=== PATIENT | female | born 1995 | race African-American/Black ===

== ENCOUNTER → 2020-04-03 15:42 | Outpatient (CLI) | payer OTHER, SELFPAY ==
[2020-04-03 17:00] LABS: Add Manual Diff / Slide Review NO; Basophils Absolute Auto 0 /uL (0-100); Basophils Percent Auto 1.2 % (0-2); Eosinophils Absolute Auto 100 /uL (0-450); Eosinophils Percent Auto 4.4 % (2-4); Hematocrit 40.5 % (36-46); Hemoglobin 13.5 g/dL (12.0-16.0); Lymphocytes Absolute Auto 1300 /uL (1100-4500); Lymphocytes Percent Auto 41.7 % (25-40); Mean Corpuscular HGB Conc 33.3 % (30-36); Mean Corpuscular Hemoglobin 27.6 PG (26-34); Monocytes Absolute Auto 300 /uL (0-900); Neutrophils Absolute Auto 1300 /uL (1500-7000); Neutrophils Percent Auto 41.7 % (50-75); Platelet Count 202 X10^3/uL (150-400); Red Blood Cell Count 4.88 X10^6/uL (4.0-5.2); Red Cell Distribution Width 25.3 % (11.6-14.8); White Blood Cell Count 3.1 X10^3/uL (4.5-11.0)
[2020-04-03 17:15] LABS: HEMOLYSIS < 15 (0-50); Iron 49 ug/dL (37-170)
[2020-04-03 17:24] LABS: Anisocytosis 3+; Platelet Estimate Adequate on smear; RBC Morphology See
[2020-04-03 17:25] LABS: Poikilocytosis 2+
[2020-04-03 17:26] LABS: Percent Iron Saturation 13 % (15-50); Total Iron Binding Capacity 371 ug/dL (265-497); Transferrin 319 mg/dL (206-381)
[2020-04-03 17:39] LABS: Ferritin 14 ng/mL (6-137)
== END ==
PROVIDERS: Referring Provider Internal Medicine Hematology & Oncology; Visit Provider Internal Medicine Hematology & Oncology
DX: D50.0 Iron deficiency anemia secondary to blood loss (chronic) (principal)
CPT/HCPCS: 36415; 82728; 83540; 83550; 85025

== ENCOUNTER → 2020-07-12 15:00 | Oncology outpatient (ONC) | payer OTHER, SELFPAY ==
[2020-01-26 14:50] VITALS: BP 134/73; PULSE 78; RESP 16; TEMP 36.9; O2SAT 100
--- NOTE | 2020-01-26 15:36 | P.CONONC_ITS ---
History of Present Illness - Data of Consult Primary Care Provider: Nia Olmstead MD - Consult Narrative Narrative: Shonna Reid is a 24 year old premenopausal woman, referred for treatment of iron deficiency anemia. She has menorrhagia. She reports heavy periods lasting 7 days, but does not have spotting in between periods. Also reports severe pelvic cramping for a week prior to starting periods. She was previously given norethindrone which did not seem to help. She denies melanotic stools or rectal bleeding. The only CBC available to us is from 04/26/2019, which showed hemoglobin 9.8, hematocrit 31.8%, MCV 68, RDW 19.5%, ferritin 7.9, TSH 1.2. She was recently prescribed oral iron supplement which she tried for few days, but could not handle due to stomach discomfort, nausea and constipation. She reports feeling excessively tired. Last week, she almost had a syncopal episode. Past medical history positive for polycystic ovary syndrome, acne, menorrhagia, dysmenorrhea, acanthosis nigricans. She never had surgery. She is lifetime nonsmoker. She drinks alcohol occasionally. 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 CC: Jan Armijo MD Home Medications and Allergies Home Medications Medication Instructions Recorded Confirmed Type ferrous sulfate 325 mg PO Q3-4D 01/26/20 01/26/20 History multivitamin 1 cap DAILY 01/26/20 01/26/20 History Allergies Allergy/AdvReac Type Severity Reaction Status Date / Time No Known Drug Allergies Allergy Verified 01/26/20 14:50 Review of Systems - Patient Self-Reported Symptoms SR Constitution: Chills, Fatigue/Malaise, Night Sweats SR ears, nose, mouth, throat issues: Bleeding gums SR Cardiovascular issues: Dizzy/lightheaded SR Skin issues: Dry skin, Skin rash or itching, Skin color changes, Hair loss or scalp prob SR Gastrointestinal issues: Poor or no appetite SR Neuro issues: Lightheaded/dizzy, Difficulty balancing Exam Vital signs: Vital Signs Temp Pulse Resp BP Pulse Ox 01/26/20 14:50 98.4 F 78 16 134/73 100 Intake and Output 01/25/20 01/26/20 01/26/20 23:59 07:59 15:59 Other: Weight 66.8 kg Patient Weight 01/26/20 23:59 Weight 66.8 kg Assessment and Plan (1) Iron deficiency anemia due to chronic blood loss Current visit: Yes Status: Chronic 24-year-old woman with severe iron deficiency anemia, secondary to menstrual blood loss. She did not tolerate oral iron well. Recommendations: Baseline labs today including CBC, CMP, ferritin, iron profile, retic count, B12 I recommend IV iron supplementation. We have scheduled iron sucrose 300 mg weekly x4 for total 1200 mg. Follow-up in 6 weeks with repeat labs on day before.
[2020-01-26 16:27] LABS: Hematocrit 27.5 % (36-46); Hemoglobin 8.5 g/dL (12.0-16.0); Mean Corpuscular HGB Conc 30.9 % (30-36); Mean Corpuscular Volume 64.6 fL (80-100); Platelet Count 250 X10^3/uL (150-400); Red Blood Cell Count 4.26 X10^6/uL (4.0-5.2); Red Cell Distribution Width 19.3 % (11.6-14.8); White Blood Cell Count 3.3 X10^3/uL (4.5-11.0)
[2020-01-26 16:28] LABS: Add Manual Diff / Slide Review YES; Reticulocyte Count, Percent 1.1 % (1.06-2.63)
[2020-01-26 16:43] LABS: Alanine Aminotransferase 16 IU/L (<35); Albumin 4.6 g/dL (3.5-5.0); Albumin Globulin Ratio 1.2 (1.0-2.8); Alkaline Phosphatase 39 U/L (38-126); Aspartate Aminotransferase 36 IU/L (14-36); BUN Creatinine Ratio 15.6 (6-22); Bilirubin Total 0.7 mg/dL (0.2-1.3); Blood Urea Nitrogen 14 mg/dL (7-17); Calcium 9.4 mg/dL (8.4-10.2); Carbon Dioxide 24 mmol/L (22-32); Chloride 104 mmol/L (98-107); Estimated Glomerular Filt Rate > 60.0 mL/min (>60); Globulin 3.8 g/dL (1.7-4.1); Glucose 99 mg/dL (70-100); HEMOLYSIS < 15 (0-50); Potassium 4.1 mmol/L (3.4-5.1); Sodium 138 mmol/L (137-145); Total Protein 8.4 g/dL (6.3-8.2)
[2020-01-26 16:50] LABS: Neutrophils Absolute Manual 1056 /uL (3000-5900); Total Cells Counted 100
[2020-01-26 16:51] LABS: Anisocytosis 1+; HEMOLYSIS < 15 (0-50); Iron 29 ug/dL (37-170); Microcytosis 1+; Ovalocytes 1+; Poikilocytosis 1+
[2020-01-26 17:02] LABS: Percent Iron Saturation 6 % (15-50); Total Iron Binding Capacity 488 ug/dL (265-497); Transferrin 397 mg/dL (206-381)
[2020-01-26 17:19] LABS: Ferritin 5 ng/mL (6-137)
[2020-01-26 17:49] LABS: Folate > 20.0 ng/mL (2.76-20.0); Vitamin B12 653 pg/mL (239-931)
--- NOTE | 2020-01-27 11:19 | ONC.SCHED ---
Jaime Garrido at [facility] no PA required for Iron as long as there is an active auth for visits. Ref#[id number].
[2020-01-29] MEDS: IRON SUCROSE 300 MG in SODIUM CHLORIDE 0.9% 100 ML 150 ML IV (12:06)
[2020-01-29] MEDS: SODIUM CHLORIDE 0.9% 250 ML 21 ML IV (12:10)
[2020-01-29 12:27] VITALS: BP 122/70; PULSE 66; RESP 18; TEMP 36.7; O2SAT 99
--- NOTE | 2020-01-29 13:24 | PC.NURSE ---
Day shift: Pt tolerated the ferrous/iron infusion well. She left the unit at 1325. No pain and no nausea. VS WNL. RA 99%. She stated she will be returing in 1 week. She is a very pleasant person.
[2020-02-05] MEDS: IRON SUCROSE 300 MG in SODIUM CHLORIDE 0.9% 100 ML 230 ML IV (11:35)
[2020-02-05] MEDS: SODIUM CHLORIDE 0.9% 250 ML 21 ML IV (11:42)
--- NOTE | 2020-02-05 11:50 | PC.NURSE ---
Pt arrived to the AC floor at 1100 and made comfortable in rm 201.
[2020-02-05 13:42] VITALS: BP 113/75; PULSE 69; RESP 16; TEMP 36.6; O2SAT 100
[2020-02-12] MEDS: IRON SUCROSE 300 MG in SODIUM CHLORIDE 0.9% 100 ML 230 ML IV (11:47)
[2020-02-12] MEDS: SODIUM CHLORIDE 0.9% 250 ML 21 ML IV (11:48)
--- NOTE | 2020-02-12 12:21 | PC.NURSE ---
Pt arrived via home settled to room. IV started per Leora ENGLE RN. tried twice before and vein didn't take either attempt. Pt given warm blanket. Pt offers no c/o , voices no other concerns.
[2020-02-12 12:36] VITALS: BP 116/70; PULSE 75; RESP 20; TEMP 37.1; O2SAT 100
[2020-02-21 13:10] VITALS: BP 126/91; PULSE 76; RESP 16; TEMP 36.8; O2SAT 100
[2020-02-21] MEDS: IRON SUCROSE 300 MG in SODIUM CHLORIDE 0.9% 100 ML 230 ML IV (14:00)
--- NOTE | 2020-03-02 15:58 | ONC.SCHED ---
Spoke with patient to move her appt as had ordered labs. Gave patient instructions to have labs completed at one week prior to 04/10/20 appt. Pt voiced understanding
--- NOTE | 2020-06-12 11:15 | P.PNONC_ITS ---
PN -Subjective Interval history: Britany Reid is a 25-year-old female presents here today for follow-up of iron deficiency anemia. Patient was previously seen by Dr. Armijo. Lab results indicated microcytic hypochromic chromic anemia consistent with iron deficiency. Initially, she tried oral iron pills which she cannot tolerate because of stomach discomfort, nausea and constipation. She had Venofer infusion 300 mg x 4 in January 2020. Patient said that afterwards she has felt better until recently. She said she again is experiencing low energy with dizzy spell. Patient said that her body just feels super weak. She does not have the energy to get out of the bed and to go to the computer. She also craves for ice. Her menstrual periods remain heavy. She denies any blood in the stool and denies any abdominal pain. She denies diarrhea or constipation. She denies any nausea or vomiting. Past medical history positive for polycystic ovary syndrome, acne, menorrhagia, dysmenorrhea, acanthosis nigricans. She never had surgery. She is lifetime nonsmoker. She drinks alcohol occasionally. 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 - Patient Self-Reported Symptoms SR Constitution: Chills, Fatigue/Malaise, Night Sweats SR ears, nose, mouth, throat issues: Bleeding gums SR Cardiovascular issues: Dizzy/lightheaded SR Skin issues: Dry skin, Skin rash or itching, Skin color changes, Hair loss or scalp prob SR Gastrointestinal issues: Poor or no appetite SR Neuro issues: Lightheaded/dizzy, Difficulty balancing - Additional ROS All systems PM: reviewed and no additional remarkable complaints except as stated Home Medications and Allergies Home Medications Medication Instructions Recorded Confirmed Type multivitamin 1 cap DAILY 01/26/20 01/26/20 History Allergies Allergy/AdvReac Type Severity Reaction Status Date / Time No Known Drug Allergies Allergy Verified 01/26/20 14:50 Exam Vital signs: 06/13/20 00:06 Last Vital Signs Temp 97.9 F 06/12/20 11:17 Pulse 70 06/12/20 11:17 Resp 16 06/12/20 11:17 BP 124/78 06/12/20 11:17 Pulse Ox 97 06/12/20 11:17 - Constitutional positive no acute distress, positive average body habitus, positive cooperative - Routine HEENT Exam Head: Present: normocephalic, atraumatic Eye: Present: EOMI, PERRL, normal accommodation. Absent: conjunctival icterus - Routine Neck Exam Present: supple. Absent: lymphadenopathy - Routine Chest/Breast/Axilla Exam Axillae: Absent: lymphadenopathy - Routine Respiratory Exam Present: Clear to auscultation bilaterally. Absent: wheezes - Routine Cardiovascular Exam Present: RRR, S1, S2. Absent: murmur, gallop, rubs - Routine Abdominal Exam Present: soft. Absent: tenderness, distended, organomegaly - Routine Extremities Exam Absent: edema - Routine Neurological Exam Present: alert, oriented X3, CN II-XII intact, normal reflexes. Absent: sensory deficit, motor deficit - Routine Psychiatric Exam Present: normal affect Results - Labs Laboratory Last Values WBC 3.3 X10^3/uL (4.5-11.0) L 01/26/20 16:14 RBC 4.26 X10^6/uL (4.0-5.2) 01/26/20 16:14 Hgb 8.5 g/dL (12.0-16.0) L 01/26/20 16:14 Hct 27.5 % (36-46) L 01/26/20 16:14 MCV 64.6 fL (80-100) L 01/26/20 16:14 MCH 20.0 PG (26-34) L 01/26/20 16:14 MCHC 30.9 % (30-36) 01/26/20 16:14 RDW 19.3 % (11.6-14.8) H 01/26/20 16:14 Plt Count 250 X10^3/uL (150-400) 01/26/20 16:14 Neut % (Auto) Not Reportable 01/26/20 16:14 Lymph % (Auto) Not Reportable 01/26/20 16:14 Greene % (Auto) Not Reportable 01/26/20 16:14 Eos % (Auto) Not Reportable 01/26/20 16:14 Baso % (Auto) Not Reportable 01/26/20 16:14 Lymph # (Auto) Not Reportable 01/26/20 16:14 Greene # (Auto) Not Reportable 01/26/20 16:14 Baso # (Auto) Not Reportable 01/26/20 16:14 Total Counted 100 01/26/20 16:14 Seg Neutrophils % 32.0 % (38-70) L 01/26/20 16:14 Lymphocytes % (Manual) 51.0 % (25-45) H 01/26/20 16:14 Atypical Lymphs % 6.0 % (-0) H 01/26/20 16:14 Monocytes % (Manual) 11.0 % (2-11) 01/26/20 16:14 Neutrophils # (Manual) 1056 /uL (2496-0154) L 01/26/20 16:14 RBC Morphology See below 01/26/20 16:14 Poikilocytosis 1+ H 01/26/20 16:14 Anisocytosis 1+ H 01/26/20 16:14 Microcytosis 1+ H 01/26/20 16:14 Ovalocytes 1+ H 01/26/20 16:14 Percent Retic 1.1 % (1.06-2.63) 01/26/20 16:14 Sodium 138 mmol/L (137-145) 01/26/20 16:14 Potassium 4.1 mmol/L (3.4-5.1) 01/26/20 16:14 Chloride 104 mmol/L (98-107) 01/26/20 16:14 Carbon Dioxide 24 mmol/L (22-32) 01/26/20 16:14 BUN 14 mg/dL (7-17) 01/26/20 16:14 Creatinine 0.90 mg/dL (0.52-1.04) 01/26/20 16:14 Estimated GFR > 60.0 mL/min (>60) 01/26/20 16:14 BUN/Creatinine Ratio 15.6 (6-22) 01/26/20 16:14 Glucose 99 mg/dL (70-100) 01/26/20 16:14 Calcium 9.4 mg/dL (8.4-10.2) 01/26/20 16:14 Iron 29 ug/dL (37-170) L 01/26/20 16:14 TIBC 488 ug/dL (265-497) 01/26/20 16:14 % Saturation 6 % (15-50) L 01/26/20 16:14 Transferrin 397 mg/dL (206-381) H 01/26/20 16:14 Ferritin 5 ng/mL (6-137) L 01/26/20 16:14 Total Bilirubin 0.7 mg/dL (0.2-1.3) 01/26/20 16:14 AST 36 IU/L (14-36) 01/26/20 16:14 ALT 16 IU/L (<35) 01/26/20 16:14 Alkaline Phosphatase 39 U/L (38-126) 01/26/20 16:14 Total Protein 8.4 g/dL (6.3-8.2) H 01/26/20 16:14 Albumin 4.6 g/dL (3.5-5.0) 01/26/20 16:14 Globulin 3.8 g/dL (1.7-4.1) 01/26/20 16:14 Albumin/Globulin Ratio 1.2 (1.0-2.8) 01/26/20 16:14 Vitamin B12 653 pg/mL (239-931) 01/26/20 16:14 Folate > 20.0 ng/mL (2.76-20.0) H 01/26/20 16:14 Assessment and Plan (1) Iron deficiency anemia due to chronic blood loss 25-year-old woman with severe iron deficiency anemia, secondary to menstrual blood loss. She did not tolerate oral iron well. Now she presents with recurrent clinical symptoms including fatigue, and pica (craving for ice) Recommendations: Repeat CBC, CMP, ferritin, iron profile today Iron sucrose 300 mg weekly x4 for total 1200 mg. Follow-up in 8 weeks with repeat labs on day before.
[2020-06-12 11:17] VITALS: BP 124/78; PULSE 70; RESP 16; TEMP 36.6; O2SAT 97
[2020-06-20 15:15] VITALS: BP 144/82; PULSE 89; RESP 18; O2SAT 99
[2020-06-20] MEDS: IRON SUCROSE 300 MG in SODIUM CHLORIDE 0.9% 100 ML 230 ML IV (15:23)
[2020-06-27 15:21] VITALS: BP 127/73; PULSE 87; RESP 16; TEMP 36.9; O2SAT 99
[2020-06-27] MEDS: IRON SUCROSE 300 MG in SODIUM CHLORIDE 0.9% 100 ML 230 ML IV (15:29)
[2020-07-08 10:02] VITALS: BP 130/70; PULSE 69; RESP 16; TEMP 36.4; O2SAT 100
[2020-07-08] MEDS: IRON SUCROSE 300 MG in SODIUM CHLORIDE 0.9% 100 ML 230 ML IV (10:09)
--- NOTE | 2020-07-08 11:09 | PC.NURSE ---
PATIENT TOLERATED IV INFUSING WITHOUT COMPLICATIONS.
[2020-07-12 15:11] VITALS: BP 127/72; PULSE 102; RESP 16; TEMP 36.8; O2SAT 95
[2020-07-12] MEDS: IRON SUCROSE 300 MG in SODIUM CHLORIDE 0.9% 100 ML 230 ML IV (15:11)
--- NOTE | 2020-08-15 13:59 | ONC.SCHED ---
Patient no showed last appointment for follow up on 08/14/2020. Called her and left 3 voicemails 08/14 @15:01 08/15 @09:08 and 08/15 @13:58. Each time I advised her to give us call back to reschedule and I have not heard anything back.
== END ==
PROVIDERS: Internal Medicine Hematology & Oncology; Visit Provider Internal Medicine Hematology & Oncology
DX: D50.0 Iron deficiency anemia secondary to blood loss (chronic) (principal); N92.0 Excessive and frequent menstruation with regular cycle
CPT/HCPCS: 36415; 80053; 82607; 82728; 82746; 83540; 83550; 85025; 85045; 96365; 99204; 99214; J1756

== ENCOUNTER 2020-09-01 09:25 | Emergency (ER) | payer OTHER, SELFPAY ==
[2020-09-01 09:30] VITALS: BP 154/79; PULSE 91; RESP 18; TEMP 36.7; O2SAT 99
--- NOTE | 2020-09-01 09:38 | ED_ITS ---
HPI - General Adult General Chief complaint: Urogenital-Female Stated complaint: 'uterus is inflamed' Time Seen by Provider: 09/01/20 09:31 Source: patient Mode of arrival: Ambulatory Limitations: no limitations History of Present Illness HPI narrative: 25-year-old female. Approximately penitentiary through menstrual cycle here for 2 days of lower abdominal pain, problems with urinating, cramping. No nausea vomiting. No change in bowel habits. She has never been in the past. She states she is concerned about STIs. Has never had a STI in the past. No fevers. Has not tried anything for symptoms prior to arrival. No back pain. Related Data Home Medications Medication Instructions Recorded Confirmed multivitamin 1 cap DAILY 01/26/20 01/26/20 Previous Rx's Medication Instructions Recorded nitrofurantoin monohyd/m-cryst 100 mg PO Q12H 5 Days #10 cap 09/01/20 [Macrobid] Allergies Allergy/AdvReac Type Severity Reaction Status Date / Time No Known Drug Allergies Allergy Verified 01/26/20 14:50 Review of Systems Constitutional Constitutional: Denies fever(s) Cardiovascular Cardiovascular: Denies chest pain and Denies dyspnea Respiratory Respiratory: Denies dyspnea Gastrointestinal Gastrointestinal: Denies nausea and Denies vomiting Comments: Lower abdomen pain Genitourinary Genitourinary: Reports dysuria, Reports urinary hesitancy and Reports urinary incontinence Genitourinary: Reports dysuria, Reports urinary incontinence, Reports urinary hesitancy and Denies vaginal discharge Musculoskeletal Musculoskeletal: Denies arthralgias and Denies myalgias Integumentary/Breasts Skin/Breast: Denies rash Neurologic Neurologic: Denies behavioral changes Psychiatric Psychiatric: Denies behavioral changes Hematologic/Lymphatic Hematologic/Lymphatic: Denies easy bleeding and Denies easy bruising Allergic/Immunologic Allergic/Immunologic: Denies urticaria Patient History Medical History Iron deficiency anemia due to chronic blood loss (Inactive) Social History Smoking Status: Never smoker Smoking Status: Never smoker alcohol intake frequency: 0-2 drinks per day Substance Use Type: does not use Exam Initial Vital Signs Initial Vital Signs: Vital Signs Temperature 98.1 F 09/01/20 09:30 Pulse Rate 91 H 09/01/20 09:30 Respiratory Rate 18 09/01/20 09:30 Blood Pressure 154/79 H 09/01/20 09:30 Pulse Oximetry 99 09/01/20 09:30 Const General: cooperative and comfortable Limitations: mental status not altered Resp Effort & Inspection: normal respiratory effort Auscultation: clear to auscultation bilaterally Cardio Rate: regular rate Rhythm: regular rhythm GI Inspection: non-distended Palpation: soft, No firm and tender (Suprapubic and right adnexa) Back/Spine/Pelvis Back: No CVA tenderness Skin Lesions: no lesions Rashes: no rashes Neuro General: patient alert and patient awake Cognition: normal cognition Speech: speech normal Extrem General: normal to inspection and capillary refill normal Psych Appearance: grossly normal and well kempt Scores GCS Dick coma scale eye opening: Spontaneous Dick coma scale verbal response: Orientated [place] coma scale motor response: Obey commands [place] coma scale total score: 15 Course Orders Ordered: ED Orders 09/01/20 09:35 Chlamydia Gonorrhea PCR -URINE Stat Test Urine Stat Urinalysis and Microscopic Stat 09/01/20 10:58 Urine Culture Stat Vital Signs Vital signs: Vital Signs - 8 hr 09/01/20 09:30 Temperature 98.1 F Pulse Rate 91 H Respiratory Rate 18 Blood Pressure 154/79 H Pulse Oximetry 99 Medical Decision Making Lab Data Lab results reviewed: Yes I reviewed the patient's lab results. Labs: Lab Results 09/01/20 09/01/20 09/01/20 Range/Units 09:35 09:35 09:35 Urine Color Yellow Urine Appearance Sl cloudy Urine pH 7.0 (4.5-8.0) Ur Specific [place] 1.015 (1.000-1.035) Urine Protein Negative (Negative) Urine Glucose (UA) 2+ H (Negative) g/dL Urine Ketones Negative (NEGATIVE) Urine Occult Blood 3+ H (Negative) Urine Nitrate Negative (Negative) Urine Bilirubin Negative (NEGATIVE) Urine Urobilinogen 0.2 (0.2) E.U./dL Ur Leukocyte Esterase Trace H (NEGATIVE) Urine RBC 30-100/hpf H (0-5/HPF) Urine WBC 10-30/hpf H (0-5/HPF) Ur Squamous Epith Cells 10-30 /hpf H (0-5/HPF) Urine Bacteria Moderate (10-30) H (None) Ur Culture Indicated? Cult not indicated Urine Test Negative (Negative) Ur Chlamydia DNA (PCR) Not detected N gonorrhoeae DNA (PCR) Not detected Point of Care Testing Test Results Negative Point of care testing: Point of Care Testing Test Results Negative MDM Narrative Medical decision making narrative: Patient does have urinary symptoms to include dysuria and urinary hesitancy and frequency. Her urinalysis does have quite a few epi cells however has other findings concerning for UTI and given her symptoms I will treat her as such. Urine culture was pending at the time of discharge. Patient was informed that if we need to switch antibiotics we would give her a call. Her gonorrhea and chlamydia tests were negative. She was informed of this. She was given return precautions and follow-up instructions. She expressed understanding and agreement. Discharge Plan Departure Patient Disposition: Home Clinical Impression: Urinary tract infection Qualifiers: Urinary tract infection type: acute cystitis Hematuria presence: without hematuria Qualified Code(s): N30.00 - Acute cystitis without hematuria Instructions: DI for Urinary Tract Infection (UTI) Activity Restrictions/Additional Instructions: A urine culture was pending at the time of discharge. We will contact you of we need to change any antibiotic regiment. I recommend you contact your primary provider for a follow-up. Take the medication as directed. Return to the emergency department for any new or worsening symptoms Prescriptions: New nitrofurantoin monohyd/m-cryst [Macrobid] 100 mg capsule 100 mg PO Q12H 5 Days Qty: 10 RF: 0 No Action multivitamin Capsule 1 cap DAILY RF: 0 Referrals: Nia Olmstead MD [Primary Care Provider] -
[2020-09-01 09:47] LABS: Appearance Urine UA SL CLOUDY; Bilirubin Urine UA NEGATIVE (NEGATIVE); Color Urine UA YELLOW; Glucose Urine UA 2+ g/dL (Negative); Ketones Urine UA NEGATIVE (NEGATIVE); Leukocyte Esterase Urine UA TRACE (NEGATIVE); Nitrite Urine UA NEGATIVE (Negative); Occult Blood Urine UA 3+ (Negative); Protein Urine UA NEGATIVE (Negative); Specific Gravity Urine UA 1.015 (1.000-1.035); Urobilinogen Urine UA 0.2 E.U./dL (0.2)
[2020-09-01 09:50] LABS: Pregnancy Test Urine Negative (Negative)
[2020-09-01 09:53] LABS: Bacteria Urine Moderate (10-30); Culture Indicated Urine Cult Not Indicated; RBC Urine 30-100/HPF (0-5/HPF); Squamous Epithelial Cell Urine 10-30 /HPF (0-5/HPF); WBC Urine 10-30/HPF (0-5/HPF)
[2020-09-01 11:15] LABS: Urine N gonorrhoeae NOT DETECTED
[2020-09-01 11:28] LABS: Urine Chlamydia NOT DETECTED
== END 2020-09-01 11:44 | disposition home or self-care (01) ==
PROVIDERS: Emergency Provider Emergency Medicine
DX: N30.00 Acute cystitis without hematuria (principal); R30.0 Dysuria; R10.30 Lower abdominal pain, unspecified
CPT/HCPCS: 81001; 81025; 87077; 87086; 87186; 87491; 87591; 99282